=== PATIENT | female | born 1970 | race Caucasian/White ===

== ENCOUNTER 2024-06-27 08:15 | Outpatient (CLI) | payer OTHER, SELFPAY ==
--- NOTE | ~2024-06-27 | US_ITS ---
US transvaginal Ordering provider: Destini Zaldivar, History: . Post menopausal bleeding . Comparison: None. Technique: endovaginal ultrasound of the pelvis (Doppler ultrasound interrogation techniques used as needed for this exam.) FINDINGS: CERVIX: Small nabothian cyst. UTERUS: Measures 4.4x 1.9x 2.8 cm in length which is within normal limits and is anteverted. No myom etrial masses. ENDOMETRIUM: Normal in thickness measuring 6 mm. No endometrial masses, cysts or fluid. Hypoechoic ar ea is seen measuring 0.8 x 0.7x0.8 cm. CUL DE SAC: No free fluid. RIGHT OVARY: Not visualized. LEFT OVARY: Not visualized. ADNEXA: Normal. No mass. IMPRESSION: Small Hypoechoic area in the uterus which may be fibroid. Follow-up advised. Nonvisualized ovaries. Otherwise, normal pelvic ultrasound. Reviewed, dictated and finalized at location A.
== END 2024-06-27 08:16 ==
LOC: MICIMG 08:17
PROVIDERS: PCP Nurse Practitioner; Visit Provider Nurse Practitioner
DX: N95.0 Postmenopausal bleeding (principal); R93.89 Abnormal findings on diagnostic imaging of other specified body structures
CPT/HCPCS: 76830

== ENCOUNTER 2024-08-01 14:04 | Outpatient (CLI) | payer OTHER, SELFPAY ==
--- NOTE | ~2024-08-01 | MM_ITS ---
EXAMINATION: MM screening eneida BI w mello HISTORY: Screening mammogram, family history of breast cancer in her sister. TECHNIQUE: Craniocaudal and mediolateral oblique 3-D tomosynthesis images were obtained and synthetic 2-D images were generated. CAD analysis was submitted and interpreted. COMPARISON: 09/18/2019, 01/13/2019, 06/05/2018 BREAST PARENCHYMAL COMPOSITION:Not Dense. There are scattered areas of fibroglandular density. FINDINGS: No suspicious mass, calcification, or architectural distortion are identified in either sophie ast to suggest malignancy. There has been no suspicious interval change. IMPRESSION: No mammographic evidence of malignancy. Recommend routine screening mammography in one year. BI-RADS Category 1: Negative Reviewed, dictated and finalized at location .
== END 2024-08-01 14:05 | disposition home or self-care (01) ==
LOC: MICIMG 14:05
PROVIDERS: PCP Nurse Practitioner; Visit Provider Nurse Practitioner
DX: Z12.31 Encounter for screening mammogram for malignant neoplasm of breast (principal); Z80.3 Family history of malignant neoplasm of breast
CPT/HCPCS: 77063; 77067